=== PATIENT | female | born 1960 | race Caucasian/White ===

== ENCOUNTER 2016-04-11 18:29 | Emergency (ER) | payer OTHER ==
[2016-04-12] MEDS ORDERED: FLEXERIL PO ONE (00:34)
[2016-04-12] MEDS ORDERED: TORADOL IM ONE (00:34)
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
[2016-04-12] MEDS ORDERED: TYLENOL ONE (01:14)
[2016-04-12] MEDS ORDERED: TYLENOL PO ONE (01:18)
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
[2016-04-12 03:29] VITALS: BP 136/61
== END 2016-04-12 03:42 | disposition home or self-care (01) ==
LOC: ED 18:29
DX: R07.89 Other chest pain (principal); E05.90 Thyrotoxicosis, unspecified without thyrotoxic crisis or storm; Z79.1 Long term (current) use of non-steroidal anti-inflammatories (NSAID); V89.2XXA Person injured in unspecified motor-vehicle accident, traffic, initial encounter; Y93.89 Activity, other specified; Y99.8 Other external cause status; Y92.488 Other paved roadways as the place of occurrence of the external cause
CPT/HCPCS: 36415; 71250; 84484; 93005; 93010; 96372; 99284; J1885

== ENCOUNTER 2020-08-26 08:28 | Outpatient (CLI) | payer OTHER ==
--- NOTE | 2020-08-26 09:29 | XRay Report ---
CHEST 2 VIEWS INDICATION: COUGH. COMPARISON: None FINDINGS: Support devices: None. Heart: Within normal limits. Lungs/pleura: No acute air space or interstitial disease. No pneumothorax. Additional findings: None. IMPRESSION: No acute findings. Signer Name: Lewis Hudson Jr, MD Signed: 08/26/2020 9:24 AM Workstation Name: [id number]
--- NOTE | 2020-08-26 11:52 | Fluoroscopy Report ---
UPPER GI HISTORY: ULCER OF ESOPHAGUS. TECHNIQUE: Single and double contrast barium technique utilized to evaluate the esophagus, stomach, and duodenal C-loop. FINDINGS: To begin the exam, swallowing was evaluated in the lateral position under direct fluorosco py. Swallowing was normal. The esophagus appears normal caliber and mucosal pattern throughout. No e sophageal ulcer was visualized. No critical stenosis. Occasional tertiary contractions were identifie d in the mid to distal esophagus consistent with mild dysmotility. The gastric cavity is normal size, contour and mucosal pattern. No mass or ulceration is detected. Th e duodenal bulb and duodenal sweep are within normal limits. There were no abnormal tertiary contract ions as seen with dysmotility. No gastroesophageal reflux. IMPRESSION: Mild esophageal dysmotility was suspected during this exam. No esophageal ulcer was witn essed under fluoroscopy. Otherwise unremarkable upper GI series. Fluoroscopic time: 1.8 minutes Number of fluoroscopic images: 14 Signer Name: Lewis Hudson Jr, MD Signed: 08/26/2020 11:48 AM Workstation Name: [id number]
== END 2020-08-26 08:29 | disposition home or self-care (01) ==
LOC: FLUORO 08:28
PROVIDERS: ATTEND Family Medicine
DX: R05 Cough (principal); K22.10 Ulcer of esophagus without bleeding
CPT/HCPCS: 71046; 74246